=== PATIENT | male | born 1980 | race Two or more races ===

== ENCOUNTER 2025-02-10 08:03 | Emergency (ER) | payer MEDICAID, OTHER ==
[~2025-02-10] VITALS: Ht 165.1 cm; Wt 75.4 kg
[2025-02-10] MEDS ORDERED: FOLIC ACID 1 MG, MULTIPLE VITAMIN 10 ML, MAGNESIUM SULF SDV 50% 8 MEQ, THIAMINE INJ 100... INJ SCH (08:45)
--- NOTE | 2025-02-10 08:49 | ED.PDOC ---
History of Present Illness HPI Comments 44m presents to the ER w/ prior Hx of drinking 12 beers a day which may be associated to the c/c of Withdrawal. Pt reports that he had his last drink of alcohol 3 days ago and started to have tremors 2 days ago. Denies chills, fever, N/V/D, SOB, CP or no other associated symptom's, modifiers, recent injuries or sick contacts at this time. Chief Complaint: Withdrawal Time Seen by MD: 08:40 Reviewed Notes: Nurses Notes, Medications, Allergies Allergies: Coded Allergies: NO KNOWN ALLERGIES (Unverified , 02/10/25) Information Source: Patient Mode of Arrival: Ambulatory Severity: Moderate Timing: Days Duration: Since onset, Days Prehospital treatment: None Past Medical History PAST MEDICAL HISTORY: Denies Surgical History: Denies all surgeries Family History Family History: Reviewed,noncontributory to illness, Unknown Social History Smoker: Non-Smoker Alcohol: Heavy (12 beers a day) Drugs: Denies Drug Use Lives In: Home Constitutional: reports: others (ETOH Withdrawals); denies: chills, nhan phoresis, fatigue, fever, malaise, sweats, weakness EENTM: denies: blurred vision, double vision, ear bleeding, ear discharge, ear drainage, ear pain, ear ringing, eye pain, eye redness, hearing loss, mouth pain, mouth swelling, nasal discharge, nose bleeding, nose congestion, nose pain, photophobia, tearing, throat pain, throat swelling, voice changes, others Respiratory: denies: cough, hemoptysis, orthopnea, SOB at rest, shortness of breath, SOB with excertion, stridor, wheezing, others Cardiovascular: denies: chest pain, dizzy spells, diaphoresis, Dyspnea on exertion, edema, irregular heart beat, left arm pain, lightheadedness, palpitations, PND, syncope, others Gastrointestinal: denies: abdomen distended, abdominal pain, blood streaked bowels, constipated, diarrhea, dysphagia, difficulty swallowing, hematemesis, melena, nausea, poor appetite, poor fluid intake, rectal bleeding, rectal pain, vomiting, others Genitourinary: denies: burning, dysuria, flank pain, frequency, hematuria, incontinence, penile discharge, penile sore, pain, testicle pain, testicle swelling, urgency, others Neurological: denies: dizziness, fainting, headache, left sided numbness, left sided weakness, numbness, paresthesia, pre-existing deficit, right sided numbness, right sided weakness, seizure, speech problems, tingling, tremors, weakness, others Musculoskeletal: denies: back pain, gout, joint pain, joint swelling, muscle pain, muscle stiffness, neck pain, others Integumetry: denies: bruises, change in color, change in hair/nails, dryness, laceration, lesions, lumps, rash, wounds, others Allergic/Immunocompromised: denies: Difficulty Healing, Frequent Infections, Hives, Itching, others Hematologic/Lymphatic: denies: anemia, blood clots, easy bleeding, easy bruising, swollen glands, others Endocrine: denies: excessive hunger, excessive sweating, excessive thirst, excessive urination, flushing, intolerance to cold, intolerance to heat, unexplained weight gain, unexplained weight loss, others Psychiatric: denies: anxiety, bipolar disorder, depression, hopeless, panic disorder, schizophrenia, sleepless, suicidal, others All Other Systems: Reviewed and Negative Physical Exam General Appearance: Moderate Distress, Normal HEENT: Normal ENT Inspection, Pharynx Normal, TMs Normal Neck: Full Range of Motion, Non-Tender, Normal, Normal Inspection Respiratory: Chest Non-Tender, Lungs Clear, No Accessory Muscle Use, No Re spiratory Distress, Normal Breath Sounds Cardiovascular: No Edema, No JVD, No Murmur, No Gallop, Normal Peripheral Pulses, Regular Rate/Rhythm Breast Exam: Deferred Gastrointestinal: No Organomegaly, Non Tender, No Pulsatile Mass, Normal Bowel Sounds, Soft Genitalia: Deferred Pelvic: Deferred Rectal: Deferred Extremities: No calf tenderness, Normal capillary refill, Normal inspection, Normal range of motion, Non-tender, No pedal edema Musculoskeletal : Apperance: Normal Neurologic: Alert, compounding and finishing supervisor II-XII nml as Tested, No Motor Deficits, Normal Affect, Normal Mood, No Sensory Deficits Cerebellar Function: NOT DONE Reflexes: NOT DONE Skin: Dry, Normal Color, Warm Peripheral Pulses: 3+ Radial (R), 3+ Radial (L) Lymphatic: No Adenopathy Was a procedure done? Was a procedure done?: No Differential Dx Considerations may include: Alcohol withdrawal Electrolyte imbalance X-Ray, Labs, Meds, VS Vital Signs Date Time Temp Pulse Resp B/P (MAP) Pulse Ox O2 Delivery O2 Flow Rate FiO2 02/10/25 09:29 84 19 98 Room Air* 0 21 02/10/25 09:03 98.0 71 14 109/62 (78) 96 98.0 02/10/25 08:18 98.9 90 18 125/89 (101) 98 98.9 Lab Test 02/10/25 10:14 02/10/25 08:45 02/10/25 08:40 Range/Units Plasma/Serum Blood Alcohol < 3.0 <10 mg/dL Urine Color Yellow Yellow Urine Clarity Clear Clear Urine pH 5.0 5.0-9.0 Urine Specific [place] 1.023 1.001-1.035 Urine Protein Negative Negative Urine Ketones Negative Negative Urine Blood Negative Negative /uL Urine Nitrite Negative Negative Urine Bilirubin Negative Negative Urine Urobilinogen Normal Negative mg/dL Urine Leukocyte Esterase Negative Negative /uL Urine RBC <1 0 - 3 /hpf Urine Microscopic WBC 1 0-3 /HPF Urine Squamous Epithelial Cells None seen <5 /hpf Urine Bacteria None seen None Seen /hpf Urine Glucose Normal Normal mg/dL White Blood Count 4.7 4.4-10.8 10^3/uL Red Blood Count 5.31 4.5-5.90 10^6/uL Hemoglobin 14.7 13.5-17.5 g/dL Hematocrit 44.6 41.0-53.0 % Mean Corpuscular Volume 83.9 80.0-100.0 fL Mean Corpuscular Hemoglobin 27.7 L 28.0-32.0 pg Mean Corpuscular Hemoglobin Concent 33.0 32.0-36.0 g/dL Red Cell Distribution Width 19.2 H 11.8-14.3 % Platelet Count 159 140-450 10^3/uL Mean Platelet Volume 8.3 6.9-10.8 fL Neutrophils (%) (Auto) 60.7 37.0-80.0 % Lymphocytes (%) (Auto) 18.4 10.0-50.0 % Monocytes (%) (Auto) 15.4 H 0.0-12.0 % Eosinophils (%) (Auto) 2.0 0.0-7.0 % Basophils (%) (Auto) 3.5 H 0.0-2.0 % Neutrophils # (Auto) 2.9 1.6-8.6 10 ^3/uL Lymphocytes # (Auto) 0.9 0.4-5.4 10 ^3/uL Monocytes # (Auto) 0.7 0-1.3 10 ^3/uL Eosinophils # (Auto) 0.1 0-0.8 10 ^3/uL Basophils # (Auto) 0.2 0-0.2 10 ^3/uL Nucleated Red Blood Cells 0.1 % Sodium Level 142 136-145 mmol/L Potassium Level 4.0 3.5-5.1 mmol/L Chloride Level 109 H 98-107 mmol/L Carbon Dioxide Level 25 20-31 mmol/L Anion Gap 8 5-15 Blood Urea Nitrogen 11 9-23 mg/dL Creatinine 0.68 L 0.700-1.30 mg/dL Glomerular Filtration Rate Calc 118 >90 mL/min BUN/Creatinine Ratio 16.2 10.0-20.0 Serum Glucose 88 74-106 mg/dL Calcium Level 10.1 8.7-10.4 mg/dL Current Medications Medications (Trade) Dose Ordered Sig/Lawson Route Start Time Stop Time Status Last Admin Lorazepam (Ativan Inj) 2 mg ONCE ONCE IM 02/10/25 08:45 02/10/25 08:47 DC 02/10/25 09:05 Sodium Chloride 1,000 ml @ 1,000 mls/hr Q1H ONCE IV 02/10/25 08:45 02/10/25 09:44 DC 02/10/25 09:06 Chlordiazepoxide HCl (Librium Capsule) 50 mg ONCE ONCE PO 02/10/25 08:45 02/10/25 08:47 DC 02/10/25 09:05 Folic Acid 1 mg/ Multivitamins 10 ml/Magnesium Sulfate 8 meq/ Thiamine HCl 100 mg/Dextrose 1,013.2 ml @ 125.001 mls/hr DAILY@1800 INJ 02/10/25 09:15 02/10/25 10:07 Patient alert. Alcohol withdrawal. Vitals stable. Answering questions. He is shaking. Last drink was several days ago. Establish intravenous access. Was given fluids. Was given Ativan. Was given Librium. Counseled patient on effects of drinking for 15 minutes. Explained to the patient. Was told to join alcoholic anonymous. Was told to follow up with his primary care physician. Was told to come back if there is any problem. Time of 1ST Reevaluation: 09:10 Reevaluation 1ST: Unchanged Time of 2ND Reevaluation: 12:52 Reevaluation 2ND: Improved Patient Education/Counseling: Diagnosis, Treatment, Prognosis Family Education/Counseling: No Family Present Departure 1 Departure Time of Disposition: 10:16 Impression: Primary Impression: Alcohol withdrawal Qualified Codes: F10.930 - Alcohol use, unspecified with withdrawal, uncomplicated Additional Impression: Alcohol abuse Disposition: 01 HOME / SELF CARE / HOMELESS Condition: Good Discharged With: Self Critical Care Note Critical Care Time?: No Stability Stability form required: No Heart Score Heart Score: Heart Score Response (Comments) Value History N/A 0 EKG N/A 0 Age N/A 0 Risk Factors N/A 0 Troponin N/A 0 Total 0 I personally scribed for FARAZ AGUILA MD ([email or web address]) on 02/10/25 at 08:49. Electronically submitted by Lane Fernandez ([email or web address]). FARAZ AGUILA MD Feb 10, 2025 08:49
[2025-02-10 08:58] LABS: Basophils # (auto) 0.2 10 ^3/uL (0-0.2); Basophils % (auto) 3.5 % (0.0-2.0); Eosinophils # (auto) 0.1 10 ^3/uL (0-0.8); Hematocrit 44.6 % (41.0-53.0); Hemoglobin 14.7 g/dL (13.5-17.5); Lymphocytes # (auto) 0.9 10 ^3/uL (0.4-5.4); Lymphocytes % (auto) 18.4 % (10.0-50.0); Mean Corpuscular Hemoglobin 27.7 pg (28.0-32.0); Mean Corpuscular Volume 83.9 fL (80.0-100.0); Monocytes # (auto) 0.7 10 ^3/uL (0-1.3); Monocytes % (auto) 15.4 % (0.0-12.0); Neutrophils # (auto) 2.9 10 ^3/uL (1.6-8.6); Neutrophils % (auto) 60.7 % (37.0-80.0); Nucleated Red Blood Cells % 0.1 %; Platelet Count (auto) 159 10^3/uL (140-450); Red Blood Cells 5.31 10^6/uL (4.5-5.90); Red Cell Distribution Width 19.2 % (11.8-14.3); White Blood Cell 4.7 10^3/uL (4.4-10.8)
[2025-02-10] MEDS: chlordiazePOXIDE HCL 25 MG CAP PO ONE (09:05)
[2025-02-10] MEDS: LORazepam 2MG/ML-1ML VIAL IM ONE (09:05)
[2025-02-10 09:06] LABS: Sodium 142 mmol/L (136-145)
[2025-02-10] MEDS: SODIUM CHLORIDE 0.9% 1,000 ML IV ONE (09:06)
[2025-02-10 09:07] LABS: Anion Gap 8 (5-15); Calcium 10.1 mg/dL (8.7-10.4); Carbon Dioxide 25 mmol/L (20-31)
[2025-02-10 09:12] LABS: BUN/Creatinine Ratio 16.2 (10.0-20.0); Blood Urea Nitrogen 11 mg/dL (9-23); Chloride 109 mmol/L (98-107); Glucose 88 mg/dL (74-106)
[2025-02-10 09:29] VITALS: PULSE 84; RESP 19; O2SAT 98
[2025-02-10 09:29] LABS: Urine Bacteria None Seen /hpf (None Seen)
[2025-02-10 09:42] LABS: Urine Blood Negative /uL (Negative); Urine Clarity Clear (Clear); Urine Color Yellow (Yellow); Urine Protein, UAD Negative (Negative); Urine Specific Gravity 1.023 (1.001-1.035); Urine Squamous Epithelial Cell None Seen /hpf (<5); Urine Urobilinogen Normal (Negative); Urine WBC 1 /HPF (0-3)
[2025-02-10] MEDS: FOLIC ACID 1 MG, MULTIPLE VITAMIN 10 ML, MAGNESIUM SULF SDV 50% 8 MEQ, THIAMINE INJ 100... INJ SCH (10:07)
[2025-02-10 13:40] VITALS: BP 115/71; PULSE 89; RESP 15; TEMP 97.9; O2SAT 98
== END 2025-02-10 14:38 | disposition home or self-care (01) ==
LOC: ER 08:03
DX: F10.10 Alcohol abuse, uncomplicated (principal); Y90.0 Blood alcohol level of less than 20 mg/100 ml
CPT/HCPCS: 36415; 80048; 80320; 81001; 85025; 96361; 96365; 96366; 96372; 99284; J3411; J3475; J7030; J7070

== ENCOUNTER 2025-02-17 19:34 | Emergency (ER) | payer MEDICAID ==
[~2025-02-17] VITALS: Ht 167.6 cm; Wt 72.6 kg
[2025-02-17 21:51] VITALS: BP 138/82; PULSE 61; RESP 12; TEMP 98; O2SAT 95
--- NOTE | 2025-02-17 21:58 | ED.PDOC ---
History of Present Illness(SKN HPI Comments PER EMS, PATIENT C/O DOG BITE ON BOTH LOWER EXTREMITIES. PUNCTURE BITES NOTED. PATIENT STATES HE WAS WALKING AND A STRAY DOG BIT HIM AND RAN AWAY. Chief Complaint: Animal Bite Time Seen by MD: 19:49 History of Present Illness: Nurses Notes, Induction Heat Treater Notes, Medications, Allergies Allergies: Coded Allergies: NO KNOWN ALLERGIES (Unverified , 02/10/25) Home Meds Active Scripts Amoxicillin & Pot Clavulanate (AUGMENTIN TABLET) 875 Mg Tb, 875 MG PO BID for 7 Days, #14 TAB Prov:HALI MARK SAP BW CONSULTANT 02/17/25 Information Source: Patient Mode of Arrival: EMS Past Medical History PAST MEDICAL HISTORY: Denies Surgical History: Denies all surgeries Family History Family History: Reviewed,noncontributory to illness, Unknown Social History Smoker: Non-Smoker Alcohol: Heavy Drugs: Denies Drug Use Lives In: Home Constitutional: denies: chills, diaphoresis, fatigue, fever, malaise, sweats, weakness, others EENTM: denies: blurred vision, double vision, ear bleeding, ear discharge, ear drainage, ear pain, ear ringing, eye pain, eye redness, hearing loss, mouth pain, mouth swelling, nasal discharge, nose bleeding, nose congestion, nose pain, photophobia, tearing, throat pain, throat swelling, voice changes, others Respiratory: denies: cough, hemoptysis, orthopnea, SOB at rest, shortness of breath, SOB with excertion, stridor, wheezing, others Cardiovascular: denies: chest pain, dizzy spells, diaphoresis, Dyspnea on exertion, edema, irregular heart beat, left arm pain, lightheadedness, palpitations, PND, syncope, others Gastrointestinal: denies: abdomen distended, abdominal pain, blood streaked bowels, constipated, diarrhea, dysphagia, difficulty swallowing, hematemesis, melena, nausea, poor appetite, poor fluid intake, rectal bleeding, rectal pain, vomiting, others Genitourinary: denies: burning, dysuria, flank pain, frequency, hematuria, incontinence, penile discharge, penile sore, pain, testicle pain, testicle swelling, urgency, others Neurological: denies: dizziness, fainting, headache, left sided numbness, left sided weakness, numbness, paresthesia, pre-existing deficit, right sided numbness, right sided weakness, seizure, speech problems, tingling, tremors, weakness, others Musculoskeletal: denies: back pain, gout, joint pain, joint swelling, muscle pain, muscle stiffness, neck pain, others Integumetry: reports: wounds (LACERATION FULL-THICKNESS TO LEFT LOWER LEG. HEALED PUNCTURE WOUND TO RIGHT LOWER LEG BLEEDING CONTROLLED); denies: bruises, change in color, change in hair/nails, dryness, laceration, lesions, lumps, rash, others Allergic/Immunocompromised: denies: Difficulty Healing, Frequent Infections, Hives, Itching, others Hematologic/Lymphatic: denies: anemia, blood clots, easy bleeding, easy bruising, swollen glands, others Endocrine: denies: excessive hunger, excessive sweating, excessive thirst, excessive urination, flushing, intolerance to cold, intolerance to heat, unexplained weight gain, unexplained weight loss, others Psychiatric: denies: anxiety, bipolar disorder, depression, hopeless, panic disorder, schizophrenia, sleepless, suicidal, others Physical Exam General Appearance: No Apparent Distress, Normal HEENT: Pharynx Normal Neck: Full Range of Motion, Non-Tender Respiratory: Lungs Clear, No Respiratory Distress, Normal Breath Sounds Cardiovascular: No Murmur, Normal Peripheral Pulses, Regular Rate/Rhythm Breast Exam: Deferred Gastrointestinal: Non Tender, Soft Genitalia: Deferred Pelvic: Deferred Rectal: Deferred Extremities: Normal capillary refill, Normal inspection, Normal range of motion, Non-tender, No pedal edema Musculoskeletal : Apperance: Normal Neurologic: Alert, automotive alignment specialist II-XII nml as Tested, No Motor Deficits, Normal Affect, Normal Mood, No Sensory Deficits Cerebellar Function: Normal Reflexes: Normal Skin: Dry, Lacerations (1.5 CM LACERATION LAST LOWER ANTERIOR MEJIA NO NOTED OBVIOUS FOREIGN BODY. RIGHT LOWER ANTERIOR MEJIA NOTED PUNCTURE WOUND HEALED LOOKING IN HIS BLEEDING CONTROLLED), Normal Color, Warm Lymphatic: No Adenopathy Was a procedure done? Was a procedure done?: Yes Sedation Sedation?: No Informed consent obtained: Yes Laceration Repair : Location LOWER ANTERIOR MEJIA Length 1.5 CM Anesthetic: Nothing Laceration Repair Prep: Saline Laceration Repair Wound Comple: epidermis/dermis repair Laceration Repair: [place] (1) Informed consent obtained: Yes Risks, benefits, and alternati: Yes Notes PATIENT TOLERATED PROCEDURE WELL WITH MINIMAL BLOOD LOSS Differential Diagnosis (INTG) Differential Diagnosis: Contusion, Puncture Wound Differential Diagnosis: Cellulitis Differential Diagnosis: N/A Abscess: N/A Differential Diagnosis: N/A X-Ray, Labs, Meds, VS Vital Signs Date Time Temp Pulse Resp B/P (MAP) Pulse Ox O2 Delivery O2 Flow Rate FiO2 02/17/25 21:51 98.0 61 12 138/82 (100) 95 98.0 02/17/25 19:40 98.0 61 12 138/82 (100) 95 98.0 Current Medications Medications (Trade) Dose Ordered Sig/Lawson Route Start Time Stop Time Status Last Admin Acetaminophen/ Hydrocodone Bitart ([place] 5/325MG Tab) 1 tab ONCE ONCE PO 02/17/25 22:00 02/17/25 22:01 DC 02/17/25 22:40 Diphtheria/ Tetanus/Acell Pertussis (Boostrix T-Dap) 0.5 ml ONCE ONCE IM 02/17/25 22:00 02/17/25 22:01 DC 02/17/25 22:44 X-Ray, Labs, Meds, VS Comment SEE PROCEDURE NOTE. PATIENT GIVEN TDAP. FOLLOW UP WITH YOUR PCP, URGENT CARE OR BACK HERE FOR WOUND RE-EVALUATION IN 2 DAYS. SCRIPT PROPHYLACTIC ANTIBIOTICS AUGMENTIN TWICE DAILY X7 DAYS FOR DOG BITE. ADVISED TO TAKE MEDICATION PRESCRIBED SIDE EFFECTS DISCUSSED. STAPLE REMOVAL IN 7-10 DAYS. ER RETURN PRECAUTIONS FOR UNCONTROLLED BLEEDING, OR SIGNS AND SYMPTOMS OF INFECTION PATIENT INDICATES UNDERSTANDING AND AGREES WITH DISCHARGE PLAN OF CARE. Time of 1ST Reevaluation: 21:58 Reevaluation 1ST: Improved Patient Education/Counseling: Diagnosis, Treatment, Prognosis, Need For Follow Up Family Education/Counseling: No Family Present Departure 1 Departure Time of Disposition: 21:57 Impression: Primary Impression: Dog bite of multiple sites of lower extremity Qualified Codes: S81.859A - Open bite, unspecified lower leg, initial encounter; W54.0XXA - Bitten by dog, initial encounter Disposition: HOME / SELF CARE / HOMELESS Condition: Stable e-Prescriptions Amoxicillin & Pot Clavulanate (AUGMENTIN TABLET) 875 Mg Tb 875 MG PO BID for 7 Days, #14 TAB Prov: HALI MARK 02/17/25 Discharged With: Self Critical Care Note Critical Care Time?: No Stability Stability form required: No HALI MARK 26, 2025 21:58
[2025-02-17] MEDS ORDERED: AUG875T PO (22:17)
[2025-02-17] MEDS: HYDROcodone-ACET 5/325MG TAB PO ONE (22:40)
[2025-02-17] MEDS: TETANUS-DIPTH-ACEL PERTUSSIS 0.5ML SYR Tdap IM ONE (22:44)
== END 2025-02-17 22:53 | disposition home or self-care (01) ==
LOC: ER 19:34 → EDBD 19:34 → ER 22:53
DX: S81.852A Open bite, left lower leg, initial encounter (principal); S81.851A Open bite, right lower leg, initial encounter; W54.0XXA Bitten by dog, initial encounter; Y93.89 Activity, other specified; Y92.89 Other specified places as the place of occurrence of the external cause; Y99.8 Other external cause status
CPT/HCPCS: 12001; 90471; 90715

== ENCOUNTER 2025-02-18 21:23 | Inpatient (IN) | payer MEDICAID ==
[~2025-02-18] VITALS: Ht 167.6 cm; Wt 77.6 kg
[~2025-02-18 21:23] MED LIST: AUG875T PO
[2025-02-19] VITALS (8 sets, daily range): BP systolic 118–128; BP diastolic 69–81; PULSE 75–95; RESP 15–18; TEMP 98.2–98.4; O2SAT 91–97
--- NOTE | 2025-02-19 00:03 | ED.PDOC ---
History of Present Illness(SKN HPI Comments 44-YEAR-OLD HOMELESS MALE PT BROUGHT IN BY EMS FOR CC OF BLE PAIN S/P DOG BITES 2 DAYS AGO. LLE APPEAR EDEMATOUS. PATIENT REPORTS INCREASING PAIN, REDNESS, AND SWELLING. DENIES ANY SIGNIFICANT PAST MEDICAL HISTORY. DENIES NUMBNESS, WEAKNESS, FEVER, CHILLS, NAUSEA, OR VOMITING. Chief Complaint: Lower Extremity Time Seen by MD: 21:38 History of Present Illness: Nurses Notes, Medications, Allergies Allergies: Coded Allergies: NO KNOWN ALLERGIES (Unverified , 02/10/25) Home Meds Active Scripts Amoxicillin & Pot Clavulanate (AUGMENTIN TABLET) 875 Mg Tb, 875 MG PO BID for 7 Days, #14 TAB Prov:HALI MARK MID LEVEL PROVIDER 02/17/25 Information Source: Patient Mode of Arrival: Ambulatory Past Medical History PAST MEDICAL HISTORY: Denies Surgical History: Denies all surgeries Family History Family History: Reviewed,noncontributory to illness, Unknown Social History Smoker: Non-Smoker Alcohol: Heavy Drugs: Denies Drug Use Lives In: Home Constitutional: denies: chills, diaphoresis, fatigue, fever, malaise, sweats, weakness, others EENTM: denies: blurred vision, double vision, ear bleeding, ear discharge, ear drainage, ear pain, ear ringing, eye pain, eye redness, hearing loss, mouth pain, mouth swelling, nasal discharge, nose bleeding, nose congestion, nose pain, photophobia, tearing, throat pain, throat swelling, voice changes, others Respiratory: denies: cough, hemoptysis, orthopnea, SOB at rest, shortness of breath, SOB with excertion, stridor, wheezing, others Cardiovascular: denies: chest pain, dizzy spells, diaphoresis, Dyspnea on exertion, edema, irregular heart beat, left arm pain, lightheadedness, palpitations, PND, syncope, others Gastrointestinal: denies: abdomen distended, abdominal pain, blood streaked bowels, constipated, diarrhea, dysphagia, difficulty swallowing, hematemesis, melena, nausea, poor appetite, poor fluid intake, rectal bleeding, rectal pain, vomiting, others Genitourinary: denies: burning, dysuria, flank pain, frequency, hematuria, incontinence, penile discharge, penile sore, pain, testicle pain, testicle swelling, urgency, others Neurological: denies: dizziness, fainting, headache, left sided numbness, left sided weakness, numbness, paresthesia, pre-existing deficit, right sided numbne ss, right sided weakness, seizure, speech problems, tingling, tremors, weakness, others Musculoskeletal: denies: back pain, gout, joint pain, joint swelling, muscle pain, muscle stiffness, neck pain, others Integumetry: reports: wounds (LEFT LOWER LEG ANTERIOR MEJIA); denies: bruises, change in color, change in hair/nails, dryness, laceration, lesions, lumps, rash, others Allergic/Immunocompromised: denies: Difficulty Healing, Frequent Infections, Hives, Itching, others Hematologic/Lymphatic: denies: anemia, blood clots, easy bleeding, easy bruising, swollen glands, others Endocrine: denies: excessive hunger, excessive sweating, excessive thirst, excessive urination, flushing, intolerance to cold, intolerance to heat, unexplained weight gain, unexplained weight loss, others Psychiatric: denies: anxiety, bipolar disorder, depression, hopeless, panic disorder, schizophrenia, sleepless, suicidal, others Physical Exam General Appearance: No Apparent Distress, Normal HEENT: Pharynx Normal Neck: Full Range of Motion, Non-Tender Respiratory: Lungs Clear, No Respiratory Distress, Normal Breath Sounds Cardiovascular: No Edema, No JVD, No Murmur, No Gallop, Normal Peripheral Pulses, Regular Rate/Rhythm Breast Exam: Deferred Gastrointestinal: No Organomegaly, Non Tender, No Pulsatile Mass, Normal Bowel Sounds, Soft Genitalia: Deferred Pelvic: Deferred Rectal: Deferred Extremities: No calf tenderness, Normal capillary refill, Normal inspection, Normal range of motion, Non-tender, No pedal edema Musculoskeletal : Apperance: Normal Neurologic: Alert, allied health professional II-XII nml as Tested, No Motor Deficits, Normal Affect, Normal Mood, No Sensory Deficits Cerebellar Function: Normal Reflexes: Normal Skin: Dry, Lacerations (0.5 CM LACERATION WITH STAPLE INTACT NOTED MODERATE ERYTHEMA WITH EDEMA. SEROSANGUINEOUS DRAINAGE STRENGTH SENSORY MOTION INTACT POSITIVE PEDAL PULSE), Normal Color, Warm Lymphatic: No Adenopathy Was a procedure done? Was a procedure done?: No Differential Diagnosis (INTG) Differential Diagnosis: Cellulitis Differential Diagnosis: Abscess X-Ray, Labs, Meds, VS Vital Signs Date Time Temp Pulse Resp B/P (MAP) Pulse Ox O2 Delivery O2 Flow Rate FiO2 02/19/25 05:02 98.6 90 18 106/73 (84) 97 98.6 02/19/25 05:02 90 18 97 Room Air* 0 21 02/18/25 21:23 98.7 73 18 126/73 (90) 97 98.7 Lab Test 02/19/25 05:26 02/19/25 00:08 Range/Units White Blood Count 4.1 #L 5.8 4.4-10.8 10^3/uL Red Blood Count 5.10 5.21 4.5-5.90 10^6/uL Hemoglobin 14.2 14.5 13.5-17.5 g/dL Hematocrit 42.4 43.7 41.0-53.0 % Mean Corpuscular Volume 83.1 84.0 80.0-100.0 fL Mean Corpuscular Hemoglobin 27.9 L 27.8 L 28.0-32.0 pg Mean Corpuscular Hemoglobin Concent 33.6 33.1 32.0-36.0 g/dL Red Cell Distribution Width 19.1 H 19.4 H 11.8-14.3 % Platelet Count 146 146 140-450 10^3/uL Mean Platelet Volume 7.8 7.6 6.9-10.8 fL Neutrophils (%) (Auto) 53.2 61.7 37.0-80.0 % Lymphocytes (%) (Auto) 31.5 27.7 10.0-50.0 % Monocytes (%) (Auto) 11.5 8.9 0.0-12.0 % Eosinophils (%) (Auto) 2.7 1.0 0.0-7.0 % Basophils (%) (Auto) 1.1 0.7 0.0-2.0 % Neutrophils # (Auto) 2.2 3.6 1.6-8.6 10 ^3/uL Lymphocytes # (Auto) 1.3 1.6 0.4-5.4 10 ^3/uL Monocytes # (Auto) 0.5 0.5 0-1.3 10 ^3/uL Eosinophils # (Auto) 0.1 0.1 0-0.8 10 ^3/uL Basophils # (Auto) 0 0 0-0.2 10 ^3/uL Nucleated Red Blood Cells 0.0 0.3 % Sodium Level 140 139 136-145 mmol/L Potassium Level 3.1 L 3.6 3.5-5.1 mmol/L Chloride Level 104 105 98-107 mmol/L Carbon Dioxide Level 27 23 20-31 mmol/L Anion Gap 9 11 5-15 Blood Urea Nitrogen < 5 L < 5 L 9-23 mg/dL Creatinine 0.59 L 0.52 L 0.700-1.30 mg/dL Glomerular Filtration Rate Calc 123 128 >90 mL/min BUN/Creatinine Ratio 8.5 L 9.6 L 10.0-20.0 Serum Glucose 95 83 74-106 mg/dL Calcium Level 9.2 9.2 8.7-10.4 mg/dL Total Bilirubin 1.4 H 1.3 H 0.2-1.0 mg/dL Aspartate Amino Transferase (AST) 40 46 H 13-40 U/L Alanine Aminotransferase (ALT) 29 33 7-40 U/L Alkaline Phosphatase 95 97 46-116 U/L Total Protein 7.3 7.8 5.7-8.2 g/dL Albumin 4.2 4.5 3.2-4.8 g/dL X-Ray, Labs, Meds, VS Comment CLINDAMYCIN IV STARTED. PATIENT PLACED FOR HOSPITALIST FOR DOG BITE INFECTION. CBC CMP ORDERED. Time of 1ST Reevaluation: 01:47 Reevaluation 1ST: Unchanged Patient Education/Counseling: Diagnosis, Treatment, Prognosis, Need For Follow Up Family Education/Counseling: No Family Present Departure 1 Departure Time of Disposition: 00:02 Impression: Primary Impression: Dog bite of left lower leg with infection Qualified Codes: S81.852A - Open bite, left lower leg, initial encounter; L08.9 - Local infection of the skin and subcutaneous tissue, unspecified; W54.0XXA - Bitten by dog, initial encounter Disposition: 09 ADMITTED INPATIENT Condition: Stable Discharged With: Self Critical Care Note Critical Care Time?: No Stability Stability form required: HALI Millan Feb 19, 2025 00:03
[2025-02-19 00:25] LABS: Basophils # (auto) 0 10 ^3/uL (0-0.2); Basophils % (auto) 0.7 % (0.0-2.0); Eosinophils # (auto) 0.1 10 ^3/uL (0-0.8); Hematocrit 43.7 % (41.0-53.0); Hemoglobin 14.5 g/dL (13.5-17.5); Lymphocytes # (auto) 1.6 10 ^3/uL (0.4-5.4); Lymphocytes % (auto) 27.7 % (10.0-50.0); Mean Corpuscular Hemoglobin 27.8 pg (28.0-32.0); Mean Corpuscular Hgb Conc. 33.1 g/dL (32.0-36.0); Monocytes # (auto) 0.5 10 ^3/uL (0-1.3); Monocytes % (auto) 8.9 % (0.0-12.0); Neutrophils # (auto) 3.6 10 ^3/uL (1.6-8.6); Neutrophils % (auto) 61.7 % (37.0-80.0); Nucleated Red Blood Cells % 0.3 %; Platelet Count (auto) 146 10^3/uL (140-450); Red Blood Cells 5.21 10^6/uL (4.5-5.90); Red Cell Distribution Width 19.4 % (11.8-14.3); White Blood Cell 5.8 10^3/uL (4.4-10.8)
[2025-02-19 00:42] LABS: Alanine Aminotransferase 33 U/L (7-40); Albumin 4.5 g/dL (3.2-4.8); Alkaline Phosphatase 97 U/L (46-116); Anion Gap 11 (5-15); Calcium 9.2 mg/dL (8.7-10.4); Carbon Dioxide 23 mmol/L (20-31); Chloride 105 mmol/L (98-107); Glucose 83 mg/dL (74-106); Potassium 3.6 mmol/L (3.5-5.1); Sodium 139 mmol/L (136-145); Total Protein 7.8 g/dL (5.7-8.2)
[2025-02-19 00:44] LABS: Aspartate Aminotransferase 46 U/L (13-40); BUN/Creatinine Ratio 9.6 (10.0-20.0); Bilirubin, Total 1.3 mg/dL (0.2-1.0); Blood Urea Nitrogen < 5 mg/dL (9-23)
[2025-02-19] MEDS: AMPICILLIN & SULBACTAM SODIUM 3 GM in SODIUM CHL 0.9% 100 ML IV ONE (00:57)
[2025-02-19] MEDS: CLINDAMYCIN 600MG IV 50 ML IV ONE (04:49)
[2025-02-19] MEDS ORDERED: DOCUSATE SOD 100 MG CAP PO PRN (05:15)
[2025-02-19] MEDS ORDERED: ONDANSETRON HCL 4 MG/2 ML VIAL IV PRN (05:15)
[2025-02-19 06:03] LABS: Basophils # (auto) 0 10 ^3/uL (0-0.2); Basophils % (auto) 1.1 % (0.0-2.0); Eosinophils # (auto) 0.1 10 ^3/uL (0-0.8); Eosinophils % (auto) 2.7 % (0.0-7.0); Hematocrit 42.4 % (41.0-53.0); Hemoglobin 14.2 g/dL (13.5-17.5); Lymphocytes # (auto) 1.3 10 ^3/uL (0.4-5.4); Lymphocytes % (auto) 31.5 % (10.0-50.0); Mean Corpuscular Hemoglobin 27.9 pg (28.0-32.0); Mean Corpuscular Hgb Conc. 33.6 g/dL (32.0-36.0); Mean Corpuscular Volume 83.1 fL (80.0-100.0); Monocytes # (auto) 0.5 10 ^3/uL (0-1.3); Monocytes % (auto) 11.5 % (0.0-12.0); Neutrophils # (auto) 2.2 10 ^3/uL (1.6-8.6); Neutrophils % (auto) 53.2 % (37.0-80.0); Platelet Count (auto) 146 10^3/uL (140-450); Red Cell Distribution Width 19.1 % (11.8-14.3); White Blood Cell 4.1 10^3/uL (4.4-10.8)
[2025-02-19 06:17] LABS: Alanine Aminotransferase 29 U/L (7-40); Albumin 4.2 g/dL (3.2-4.8); Alkaline Phosphatase 95 U/L (46-116); Anion Gap 9 (5-15); Calcium 9.2 mg/dL (8.7-10.4); Carbon Dioxide 27 mmol/L (20-31); Chloride 104 mmol/L (98-107); Glucose 95 mg/dL (74-106); Sodium 140 mmol/L (136-145); Total Protein 7.3 g/dL (5.7-8.2)
[2025-02-19 06:19] LABS: Aspartate Aminotransferase 40 U/L (13-40); BUN/Creatinine Ratio 8.5 (10.0-20.0); Bilirubin, Total 1.4 mg/dL (0.2-1.0); Blood Urea Nitrogen < 5 mg/dL (9-23); Potassium 3.1 mmol/L (3.5-5.1)
--- NOTE | 2025-02-19 06:23 | DVHHP2 ---
History of Present Illness Reason for Visit: Dog bite of left lower leg with infection History of Present Illness The patient is a 44-year-old male homeless who denies past medical history presented to [facility] ED for evaluation of left lower extremity dog bite 2 days ago. Patient reports increasing pain, redness, swelling, getting worse today that prompted this visit. Patient was seen and evaluated in the ED, laboratory data shows WBC 5.8, platelets 146, sodium 139, potassium 3.6, BUN < 5, creatinine 0.52, GFR 128, glucose 83, total bilirubin 1.3, AST 46, ALT 33. Patient was started on IV antibiotic regimen Unasyn, please see medication orders section in the computer. On my assessment, patient denies chest pain, no headache, no dizziness, no diaphoresis, no shortness of breath, no nausea, no vomiting, no fever, no chills. Patient was admitted for further evaluation and medical management. Past Medical History Denies past medical history Past Surgical History Denies all surgeries Family History Reviewed, noncontributory to the management of this case. Past Social History The patient lives at home, drinks alcohol heavily, denies smoking or illicit drugs abuse. Review of Systems Constitutional: No: Fever, Chills, Sweats, Weakness, Malaise, Other Eyes: No: Pain, Vision change, Conjunctivae inflammation, Eyelid inflammation, Other, Redness ENT: No: Ear pain, Ear discharge, Nose pain, Nose discharge, Nose congestion, Mouth pain, Mouth swelling, Throat pain, Throat swelling, Other Respiratory: No: Cough, Dry, Shortness of breath, SOB with excertion, Wheezing, Hemoptysis, Pleuritic Pain, Sputum, Wheezing, Other Cardiovascular: No: Chest Pain, Palpitations, Orthopnea, Paroxysmal Noc. Dyspnea, Edema, Lt Headedness, Other Gastrointestinal: No: Nausea, Vomiting, Abdominal Pain, Diarrhea, Constipation, Melena, Hematochezia, Other Genitourinary: No Dysuria, No Frequency, No Incontinence, No Hematuria, No Retention, No Other Musculoskeletal: foot pain; No: other, neck pain, shoulder pain, arm pain, back pain, hand pain, leg pain Skin: Other (Left foot dog bite); No: Rash, Lesions, Jaundice, Bruising Neurological: No: Weakness, Numbness, Incoordination, Change in speech, Confusion, Seizures, Other Allergies: Coded Allergies: NO KNOWN ALLERGIES (Unverified , 02/10/25) Medications Current Medications Medications Dose Ordered Sig/Lawson Route Start Time Stop Time Status Last Admin Dose Admin Ampicillin Sodium/ Sulbactam Sodium 3 gm/Sodium Chloride 100 ml @ 100 mls/hr Q12H IV 02/19/25 05:15 Sodium Chloride 1,000 ml @ 60 mls/hr [id number] IV 02/19/25 05:15 Acetaminophen/ Hydrocodone Bitart 1 tab Q4HP PRN PO 02/19/25 05:15 Ondansetron HCl 4 mg Q4HP PRN IV 02/19/25 05:15 Docusate Sodium 100 mg BIDPRN PRN PO 02/19/25 05:15 Acetaminophen 650 mg Q6HP PRN PO 02/19/25 05:15 Nitroglycerin 0.4 mg Q5MINP PRN SL 02/19/25 06:30 UNV Morphine Sulfate 2 mg Q30M PRN IV 02/19/25 06:30 UNV Exam Vital Signs Vital Signs Date Time Temp Pulse Resp B/P (MAP) Pulse Ox O2 Delivery O2 Flow Rate FiO2 02/19/25 05:02 98.6 90 18 106/73 (84) 97 98.6 02/19/25 05:02 Room Air* 0 21 General Appearance: Alert, Oriented X3, Cooperative, No acute distress HEENT: Atraumatic, PERRLA, EOMI, Mucous membr. moist/pink Respiratory: Clear to auscultation, Normal air movement Cardiovascular: Regular rate, Normal S1, Normal S2, No murmurs Abdominal: Normal bowel sounds, Soft, No tenderness, No hepatospenomegaly, No masses Extremities: No clubbing, No cyanosis, No edema, Normal pulses, Other (Foot tenderness/swelling) Skin: No rashes, No breakdown, No significant lesion Neuro: Normal gait, Normal speech, Strength at 5/5 X4 ext, Normal tone, Sensation intact, Cranial nerves 3-12 NL, Reflexes 2+ Psych/Mental Status: Mental status NL, Mood NL Labs/Xrays Labs Test 02/19/25 05:26 Range/Units White Blood Count 4.1 #L 4.4-10.8 10^3/uL Red Blood Count 5.10 4.5-5.90 10^6/uL Hemoglobin 14.2 13.5-17.5 g/dL Hematocrit 42.4 41.0-53.0 % Mean Corpuscular Volume 83.1 80.0-100.0 fL Mean Corpuscular Hemoglobin 27.9 L 28.0-32.0 pg Mean Corpuscular Hemoglobin Concent 33.6 32.0-36.0 g/dL Red Cell Distribution Width 19.1 H 11.8-14.3 % Platelet Count 146 140-450 10^3/uL Mean Platelet Volume 7.8 6.9-10.8 fL Neutrophils (%) (Auto) 53.2 37.0-80.0 % Lymphocytes (%) (Auto) 31.5 10.0-50.0 % Monocytes (%) (Auto) 11.5 0.0-12.0 % Eosinophils (%) (Auto) 2.7 0.0-7.0 % Basophils (%) (Auto) 1.1 0.0-2.0 % Neutrophils # (Auto) 2.2 1.6-8.6 10 ^3/uL Lymphocytes # (Auto) 1.3 0.4-5.4 10 ^3/uL Monocytes # (Auto) 0.5 0-1.3 10 ^3/uL Eosinophils # (Auto) 0.1 0-0.8 10 ^3/uL Basophils # (Auto) 0 0-0.2 10 ^3/uL Nucleated Red Blood Cells 0.0 % Sodium Level 140 136-145 mmol/L Potassium Level 3.1 L 3.5-5.1 mmol/L Chloride Level 104 98-107 mmol/L Carbon Dioxide Level 27 20-31 mmol/L Anion Gap 9 5-15 Blood Urea Nitrogen < 5 L 9-23 mg/dL Creatinine 0.59 L 0.700-1.30 mg/dL Glomerular Filtration Rate Calc 123 >90 mL/min BUN/Creatinine Ratio 8.5 L 10.0-20.0 Serum Glucose 95 74-106 mg/dL Calcium Level 9.2 8.7-10.4 mg/dL Total Bilirubin 1.4 H 0.2-1.0 mg/dL Aspartate Amino Transferase (AST) 40 13-40 U/L Alanine Aminotransferase (ALT) 29 7-40 U/L Alkaline Phosphatase 95 46-116 U/L Total Protein 7.3 5.7-8.2 g/dL Albumin 4.2 3.2-4.8 g/dL Assessment/Plan Assessment/Plan Dog bite of left lower leg with infection Open bite, left lower leg, initial encounter Local infection of the skin and subcutaneous tissue, unspecified Bitten by dog, initial encounter Plan 1. Admit to med surge unit 2. Breathing treatment 3. Pain control management 4. IV antibiotic management 5. Management of fluids and electrolytes 6. Consultation for hospitalist 7. Diagnostic test chest x-ray 8. DVT prophylaxis-on SCDs 9. Repeat labs CBC, CMP in a.m. 10. Continue with current medical management 11. Treatment plan discussed with patient and RN. Patient verbalized understanding. Plan discussed with: Patient, Other (RN) My Orders Orders - MARIA DEL CARMEN GONZALEZ DNP Procedure Category Date Status Time Ampicillin & PHA 02/19/25 In Process Sulbactam Sodium 05:15 Allergies RJ 02/19/25 In Process 05:06 Code Status CODE 02/19/25 Transmitted 05:06 Sodium Chloride 0.9% PHA 02/19/25 In Process 05:15 Oxygen Per Hour RT 02/19/25 Transmitted 05:06 Hydrocodone-Acet PHA 02/19/25 In Process 5/325mg Tab ([place] 05:15 Ondansetron Hcl PHA 02/19/25 In Process (Zofran) 05:15 Docusate Sodium PHA 02/19/25 In Process Capsule (Colace 05:15 Complete Blood Count LAB 02/20/25 Verified 04:00 Comprehensive LAB 02/20/25 Verified Metabolic Panel 04:00 Cardiac DIET 02/19/25 Transmitted Diet-2gna,Lofat,Lochol Breakfast Condition: Serious RJ 02/19/25 In Process 05:06 Acetaminophen Tablet PHA 02/19/25 In Process (Tylenol Tablet) 05:15 Bedrest With Bathroom RJ 02/19/25 In Process Privileg 05:06 Sequential RJ 02/19/25 In Process Compression Device Admit ADMIT 02/19/25 Transmitted 06:21 Nitroglycerin PHA 02/19/25 Transmitted Sublingual (Ntrostat 06:30 Morphine Sulfate PHA 02/19/25 Transmitted Injection 06:30 Notify Of Changes RJ 02/19/25 Transmitted From Base 06:21 Emergency Dysrhythmia RJ 02/19/25 Transmitted Protocol 06:21 Oxygen By Nasal RT 02/19/25 Transmitted Cannula 06:21 Problem List: (1) Dog bite of left lower leg with infection (2) Open bite, left lower leg, initial encounter (3) Local infection of the skin and subcutaneous tissue, unspecified (4) Bitten by dog, initial encounter Date of Service: Feb 19, 2025 Billing Provider: MARIA DEL CARMEN GONZALEZ DNP Common Visit Codes: [id number] INP/OBS CARE (HIGH) MARIA DEL CARMEN GONZALEZ DNP Feb 19, 2025 06:23
[2025-02-19] MEDS ORDERED: NITROGLYCERIN 0.4 MG SL TAB SL PRN (06:30)
[2025-02-19] MEDS ORDERED: MORPHINE SULFATE INJ 2 MG/ml SYRG IV PRN (06:30)
[2025-02-19] MEDS: SODIUM CHLORIDE 0.9% 1,000 ML IV SCH (06:57)
[2025-02-19 07:06] LABS: Urine Bacteria None Seen /hpf (None Seen)
[2025-02-19 07:32] LABS: Urine Blood Negative /uL (Negative); Urine Clarity Clear (Clear); Urine Color Light-Orange (Yellow); Urine Hyaline Cast FEW /lpf (0 - 2); Urine Mucus FEW (None Seen); Urine Protein, UAD 1+ (Negative); Urine Squamous Epithelial Cell FEW /hpf (<5); Urine Urobilinogen 3 mg/dL (Negative); Urine WBC 4 /HPF (0-3); Urine pH 5.5 (5.0-9.0)
[2025-02-19] MEDS: AMPICILLIN & SULBACTAM SODIUM 3 GM in SODIUM CHL 0.9% 100 ML IV SCH (08:36)
[2025-02-19] MEDS: ACETAMINOPHEN 325 MG TAB PO PRN (15:59)
[2025-02-19] MEDS: POTASSIUM EFFERVESENT TAB 25 MEQ PO ONE (17:33)
[2025-02-20 01:00] VITALS: BP 118/71; PULSE 78; RESP 18; TEMP 98.2; O2SAT 97
[2025-02-20 05:00] VITALS: BP 130/81; PULSE 74; RESP 18; TEMP 97.9; O2SAT 95
[2025-02-20 07:28] LABS: Basophils # (auto) 0 10 ^3/uL (0-0.2); Eosinophils # (auto) 0.1 10 ^3/uL (0-0.8); Hemoglobin 14.6 g/dL (13.5-17.5); Nucleated Red Blood Cells % 0.1 %; Platelet Count (auto) 107 10^3/uL (140-450)
[2025-02-20 07:30] LABS: Basophils % (auto) 0.6 % (0.0-2.0); Eosinophils % (auto) 2.3 % (0.0-7.0); Hematocrit 44.8 % (41.0-53.0); Lymphocytes # (auto) 0.8 10 ^3/uL (0.4-5.4); Lymphocytes % (auto) 18.6 % (10.0-50.0); Mean Corpuscular Hemoglobin 27.3 pg (28.0-32.0); Mean Corpuscular Hgb Conc. 32.7 g/dL (32.0-36.0); Mean Corpuscular Volume 83.7 fL (80.0-100.0); Monocytes # (auto) 0.5 10 ^3/uL (0-1.3); Monocytes % (auto) 11.8 % (0.0-12.0); Neutrophils # (auto) 2.8 10 ^3/uL (1.6-8.6); Neutrophils % (auto) 66.7 % (37.0-80.0); Red Blood Cells 5.35 10^6/uL (4.5-5.90); Red Cell Distribution Width 19.5 % (11.8-14.3); White Blood Cell 4.1 10^3/uL (4.4-10.8)
[2025-02-20 07:54] LABS: Alanine Aminotransferase 28 U/L (7-40); Alkaline Phosphatase 99 U/L (46-116); Anion Gap 10 (5-15); Aspartate Aminotransferase 32 U/L (13-40); Calcium 9.2 mg/dL (8.7-10.4); Carbon Dioxide 23 mmol/L (20-31); Chloride 104 mmol/L (98-107); Glucose 99 mg/dL (74-106); Magnesium 1.7 mg/dL (1.6-2.6); Potassium 3.8 mmol/L (3.5-5.1); Sodium 137 mmol/L (136-145); Total Protein 7.1 g/dL (5.7-8.2)
[2025-02-20 07:55] LABS: BUN/Creatinine Ratio 8.6 (10.0-20.0); Bilirubin, Total 2.6 mg/dL (0.2-1.0); Blood Urea Nitrogen < 5 mg/dL (9-23)
[2025-02-20 08:57] VITALS: BP 119/79; PULSE 81; RESP 16; TEMP 98.2; O2SAT 95
[2025-02-20 12:34] VITALS: BP 126/79; PULSE 80; RESP 16; TEMP 98.2; O2SAT 93
[2025-02-20] MEDS: SODIUM CHLORIDE 0.9% 1,000 ML IV SCH (16:00)
[2025-02-20] MEDS: AMPICILLIN & SULBACTAM SODIUM 3 GM in SODIUM CHL 0.9% 100 ML IV SCH (16:32)
[2025-02-20 16:38] VITALS: BP 127/82; PULSE 81; RESP 16; TEMP 98.6; O2SAT 96
--- NOTE | 2025-02-20 17:33 | DVHPN2 ---
Subjective Feels better Reviewed: Care Plan, H&P, Labs, Medications, Previous Orders, Radiology Changes from previous H/P or p: No Changes Objective Vitals Vital Signs Date Time Temp Pulse Resp B/P (MAP) Pulse Ox O2 Delivery O2 Flow Rate FiO2 02/20/25 16:38 98.6 81 16 127/82 (97) 96 98.6 02/20/25 07:45 Room Air* 0 21 Intake/Output Intake and Output 02/20/25 07:00 Intake Total 3380 ml Balance 3380 ml Intake Oral 2200 ml IV Total 1180 ml # Voids 3 General Appearance: Alert, Oriented X3, Cooperative, No acute distress HEENT: Atraumatic Lungs: Clear to auscultation Cardiovascular: Regular rate Extremities: Other (Bilateral lower extremities healing dog bite wounds. No tension edema. No redness or redness of the skin. Minimal wounds surrounding erythema) Medications Current Medications Medications Dose Ordered Sig/Lawson Route Start Time Stop Time Status Last Admin Dose Admin Acetaminophen/ Hydrocodone Bitart 1 tab Q4HP PRN PO 02/19/25 05:15 Ondansetron HCl 4 mg Q4HP PRN IV 02/19/25 05:15 Docusate Sodium 100 mg BIDPRN PRN PO 02/19/25 05:15 Acetaminophen 650 mg Q6HP PRN PO 02/19/25 05:15 02/20/25 16:31 650 MG Nitroglycerin 0.4 mg Q5MINP PRN SL 02/19/25 06:30 Morphine Sulfate 2 mg Q30M PRN IV 02/19/25 06:30 Ampicillin Sodium/ Sulbactam Sodium 3 gm/Sodium Chloride 100 ml @ 100 mls/hr Q6H IV 02/20/25 15:00 02/20/25 16:32 100 MLS/HR Sodium Chloride 1,000 ml @ 75 mls/hr [id number] IV 02/20/25 16:00 Laboratory Results Laboratory Tests 02/20/25 07:00 Chemistry Test 02/20/25 07:00 Albumin 4.0 g/dL (3.2-4.8) Calcium Level 9.2 mg/dL (8.7-10.4) Magnesium Level 1.7 mg/dL (1.6-2.6) Total Protein 7.1 g/dL (5.7-8.2) LFT Test 02/20/25 07:00 Alanine Aminotransferase (ALT) 28 U/L (7-40) Alkaline Phosphatase 99 U/L (46-116) Aspartate Amino Transferase (AST) 32 U/L (13-40) Total Bilirubin 2.6 mg/dL (0.2-1.0) H Urinalysis Test 02/19/25 06:30 Urine Color Light-orange (Yellow) Urine Clarity Clear (Clear) Urine pH 5.5 (5.0-9.0) Urine Specific [place] 1.030 (1.001-1.035) Urine Protein 1+ (Negative) H Urine Ketones Trace (Negative) Urine Blood Negative /uL (Negative) Urine Nitrite Negative (Negative) Urine Bilirubin Negative (Negative) Urine Urobilinogen 3 mg/dL (Negative) H Urine Leukocyte Esterase Negative /uL (Negative) Urine RBC 2 /hpf (0 - 3) Urine Microscopic WBC 4 /HPF (0-3) H Urine Squamous Epithelial Cells Few /hpf (<5) Urine Bacteria None seen /hpf (None Seen) Urine Hyaline Casts Few /lpf (0 - 2) Urine Mucus Few (None Seen) Urine Glucose Trace mg/dL (Normal) Assessment/Plan Assessment/Plan Bilateral lower extremities wounds from dog bites Leukopenia Thrombocytopenia Homelessness 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 Continue IV antibiotics. Further plan per orders Plan discussed with: Patient, Other (Nursing) My Orders Orders - TREVON NORMAN MD Procedure Category Date Status Time Apply/Change Dressing RJ 02/20/25 In Process 11:36 L Tib Fib Xray XY 02/20/25 Taken 15:58 R Tib Fib Xray XY 02/20/25 Taken 15:58 Sodium Chloride 0.9% PHA 02/20/25 In Process 16:00 Date of Service: Feb 20, 2025 Billing Provider: TREVON NORMAN MD Common Visit Codes: [id number] INP/OBS CARE(HIGH) TREVON NORMAN MD Feb 20, 2025 17:33
--- NOTE | 2025-02-20 17:45 | DVH ---
CLINICAL INDICATION: R/O foreign objects TECHNIQUE: 2 radiographic views of the right tibia and fibula were obtained. Comparison: None FINDINGS/IMPRESSION: There is no evidence of acute fracture or dislocation. The visualized joint space is well maintained. The alignment is anatomical. There is no radiopaque foreign body. HS:Y
--- NOTE | 2025-02-20 17:46 | DVH ---
CLINICAL INDICATION: R/O foreign objects TECHNIQUE: 2 radiographic views of the left tibia and fibula were obtained. Comparison: None FINDINGS/IMPRESSION: There is no evidence of acute fracture or dislocation. The visualized joint space is well maintained. The alignment is anatomical. There is no radiopaque foreign body. HS:Y
[2025-02-20 20:09] LABS: Erythrocyte Sedimentation Rate 4 mm/hr (0-20)
[2025-02-20 21:00] VITALS: BP 112/71; PULSE 85; RESP 19; TEMP 98.1; O2SAT 95
[2025-02-21] VITALS (7 sets, daily range): BP systolic 108–122; BP diastolic 65–85; PULSE 60–75; RESP 16–18; TEMP 97.9–98.3; O2SAT 94–96
[2025-02-21 08:17] LABS: Basophils # (auto) 0 10 ^3/uL (0-0.2); Basophils % (auto) 0.9 % (0.0-2.0); Eosinophils # (auto) 0.2 10 ^3/uL (0-0.8); Hemoglobin 14.3 g/dL (13.5-17.5); Lymphocytes % (auto) 23.4 % (10.0-50.0); Mean Corpuscular Hemoglobin 27.7 pg (28.0-32.0); Mean Corpuscular Hgb Conc. 33.3 g/dL (32.0-36.0); Mean Corpuscular Volume 83.2 fL (80.0-100.0); Monocytes # (auto) 0.5 10 ^3/uL (0-1.3); Monocytes % (auto) 11.1 % (0.0-12.0); Neutrophils # (auto) 2.6 10 ^3/uL (1.6-8.6); Neutrophils % (auto) 59.6 % (37.0-80.0); Platelet Count (auto) 112 10^3/uL (140-450); Red Blood Cells 5.16 10^6/uL (4.5-5.90); Red Cell Distribution Width 19.3 % (11.8-14.3); White Blood Cell 4.3 10^3/uL (4.4-10.8)
[2025-02-21 08:54] LABS: Erythrocyte Sedimentation Rate 2 mm/hr (0-20)
--- NOTE | 2025-02-21 16:27 | DVHPN2 ---
Subjective Feels better Reviewed: Care Plan, H&P, Labs, Medications, Previous Orders, Radiology Changes from previous H/P or p: No Changes Objective Vitals Vital Signs Date Time Temp Pulse Resp B/P (MAP) Pulse Ox O2 Delivery O2 Flow Rate FiO2 02/21/25 12:35 97.9 68 16 108/70 (83) 96 97.9 02/21/25 08:00 Room Air* 0 21 Intake/Output Intake and Output 02/21/25 07:00 Intake Total 3060.0 ml Balance 3060.0 ml Intake Oral 1220 ml IV Total 1840.0 ml # Voids 4 # Bowel Movements 2 General Appearance: Alert, Oriented X3, Cooperative, No acute distress HEENT: Atraumatic Lungs: Clear to auscultation Cardiovascular: Regular rate Extremities: Other (Right lower extremity is better. Still warmth and mild tenderness in the left lower extremity) Medications Current Medications Medications Dose Ordered Sig/Lawson Route Start Time Stop Time Status Last Admin Dose Admin Acetaminophen/ Hydrocodone Bitart 1 tab Q4HP PRN PO 02/19/25 05:15 Ondansetron HCl 4 mg Q4HP PRN IV 02/19/25 05:15 Docusate Sodium 100 mg BIDPRN PRN PO 02/19/25 05:15 Acetaminophen 650 mg Q6HP PRN PO 02/19/25 05:15 02/20/25 16:31 650 MG Nitroglycerin 0.4 mg Q5MINP PRN SL 02/19/25 06:30 Morphine Sulfate 2 mg Q30M PRN IV 02/19/25 06:30 Ampicillin Sodium/ Sulbactam Sodium 3 gm/Sodium Chloride 100 ml @ 100 mls/hr Q6H IV 02/20/25 15:00 02/21/25 15:00 100 MLS/HR Sodium Chloride 1,000 ml @ 75 mls/hr [id number] IV 02/20/25 16:00 02/21/25 05:46 75 MLS/HR Laboratory Results Laboratory Tests 02/20/25 07:00 02/21/25 07:53 Urinalysis Test 02/19/25 06:30 Urine Color Light-orange (Yellow) Urine Clarity Clear (Clear) Urine pH 5.5 (5.0-9.0) Urine Specific [place] 1.030 (1.001-1.035) Urine Protein 1+ (Negative) H Urine Ketones Trace (Negative) Urine Blood Negative /uL (Negative) Urine Nitrite Negative (Negative) Urine Bilirubin Negative (Negative) Urine Urobilinogen 3 mg/dL (Negative) H Urine Leukocyte Esterase Negative /uL (Negative) Urine RBC 2 /hpf (0 - 3) Urine Microscopic WBC 4 /HPF (0-3) H Urine Squamous Epithelial Cells Few /hpf (<5) Urine Bacteria None seen /hpf (None Seen) Urine Hyaline Casts Few /lpf (0 - 2) Urine Mucus Few (None Seen) Urine Glucose Trace mg/dL (Normal) Assessment/Plan Assessment/Plan Bilateral lower extremities wounds from dog bites/ left more than right Leukopenia Thrombocytopenia Homelessness Probably Gilbert's syndrome Plan: Continue IV antibiotic. No foreign bodies by the x-ray. Possible home tomorrow if stable Plan discussed with: Patient Date of Service: Feb 21, 2025 Billing Provider: TREVON NORMAN MD Common Visit Codes: [id number] INP/OBS CARE(MOD) TREVON NORMAN MD Feb 21, 2025 16:27
[2025-02-22] VITALS (8 sets, daily range): BP systolic 104–115; BP diastolic 64–73; PULSE 64–78; RESP 16–18; TEMP 97.9–98.3; O2SAT 94–97
--- NOTE | 2025-02-22 17:01 | DVHDS2 ---
Discharge Summary Date of Admission Feb 19, 2025 at 06:21 Date of Discharge: Feb 22, 2025 Admitting Diagnosis Dog bite with cellulitis Labs/Diagnostic Data: Laboratory Results Test 02/21/25 07:53 02/20/25 07:00 02/19/25 06:30 White Blood Count 4.3 10^3/uL (4.4-10.8) Red Blood Count 5.16 10^6/uL (4.5-5.90) Hemoglobin 14.3 g/dL (13.5-17.5) Hematocrit 43.0 % (41.0-53.0) Mean Corpuscular Volume 83.2 fL (80.0-100.0) Mean Corpuscular Hemoglobin 27.7 pg (28.0-32.0) Mean Corpuscular Hemoglobin Concent 33.3 g/dL (32.0-36.0) Red Cell Distribution Width 19.3 % (11.8-14.3) Platelet Count 112 10^3/uL (140-450) Mean Platelet Volume 7.4 fL (6.9-10.8) Neutrophils (%) (Auto) 59.6 % (37.0-80.0) Lymphocytes (%) (Auto) 23.4 % (10.0-50.0) Monocytes (%) (Auto) 11.1 % (0.0-12.0) Eosinophils (%) (Auto) 5.0 % (0.0-7.0) Basophils (%) (Auto) 0.9 % (0.0-2.0) Neutrophils # (Auto) 2.6 10 ^3/uL (1.6-8.6) Lymphocytes # (Auto) 1.0 10 ^3/uL (0.4-5.4) Monocytes # (Auto) 0.5 10 ^3/uL (0-1.3) Eosinophils # (Auto) 0.2 10 ^3/uL (0-0.8) Basophils # (Auto) 0 10 ^3/uL (0-0.2) Nucleated Red Blood Cells 0.0 % Erythrocyte Sedimentation Rate 2 mm/hr (0-20) Sodium Level 137 mmol/L (136-145) Potassium Level 3.8 mmol/L (3.5-5.1) Chloride Level 104 mmol/L (98-107) Carbon Dioxide Level 23 mmol/L (20-31) Anion Gap 10 (5-15) Blood Urea Nitrogen < 5 mg/dL (9-23) Creatinine 0.58 mg/dL (0.700-1.30) Glomerular Filtration Rate Calc 124 mL/min (>90) BUN/Creatinine Ratio 8.6 (10.0-20.0) Serum Glucose 99 mg/dL (74-106) Calcium Level 9.2 mg/dL (8.7-10.4) Magnesium Level 1.7 mg/dL (1.6-2.6) Total Bilirubin 2.6 mg/dL (0.2-1.0) Aspartate Amino Transferase (AST) 32 U/L (13-40) Alanine Aminotransferase (ALT) 28 U/L (7-40) Alkaline Phosphatase 99 U/L (46-116) Total Protein 7.1 g/dL (5.7-8.2) Albumin 4.0 g/dL (3.2-4.8) Urine Color Light-orange (Yellow) Urine Clarity Clear (Clear) Urine pH 5.5 (5.0-9.0) Urine Specific [place] 1.030 (1.001-1.035) Urine Protein 1+ (Negative) Urine Ketones Trace (Negative) Urine Blood Negative /uL (Negative) Urine Nitrite Negative (Negative) Urine Bilirubin Negative (Negative) Urine Urobilinogen 3 mg/dL (Negative) Urine Leukocyte Esterase Negative /uL (Negative) Urine RBC 2 /hpf (0 - 3) Urine Microscopic WBC 4 /HPF (0-3) Urine Squamous Epithelial Cells Few /hpf (<5) Urine Bacteria None seen /hpf (None Seen) Urine Hyaline Casts Few /lpf (0 - 2) Urine Mucus Few (None Seen) Urine Glucose Trace mg/dL (Normal) Other Laboratory Tests 02/21/25 07:53 02/20/25 07:00 Brief Hx & Hospital Course: History of Present Illness The patient is a 44-year-old male homeless who denies past medical history presented to [facility] ED for evaluation of left lower extremity dog bite 2 days ago. Patient reports increasing pain, redness, swelling, getting worse today that prompted this visit. Patient was seen and evaluated in the ED, laboratory data shows WBC 5.8, platelets 146, sodium 139, potassium 3.6, BUN < 5, creatinine 0.52, GFR 128, glucose 83, total bilirubin 1.3, AST 46, ALT 33. Patient was started on IV antibiotic regimen Unasyn, please see medication orders section in the computer. On my assessment, patient denies chest pain, no headache, no dizziness, no diaphoresis, no shortness of breath, no nausea, no vomiting, no fever, no chills. Patient was admitted for further evaluation and medical management. Course of hospitalization: Patient was started on antibiotic therapy with ampicillin and clindamycin. Patient's redness has resolved his lower extremities. Puncture sites are without any drainage. Patient has no leukocytosis and is afebrile. Patient is agreeable to be discharged home he will be continued on antibiotic therapy with Augmentin 500 mg p.o. b.i.d. for additional five days. He will follow up with the discharge Clinic in one week. All questions Answered. Physical examination General: Alert and Oriented x3. No acute distress. Well-nourished. Eyes: EOMI. Anicteric. HENT: Moist mucous membranes. Lungs: Clear to auscultation bilaterally. No accessory muscle use. Cardiovascular: Regular rate and rhythm. No murmur. No JVD. Abdomen: Soft, non-tender and non-distended. No palpable masses. Extremities: No edema. Non-tender. Skin: No rashes or lesions. Warm. Neurologic: No focal neurological deficits. CN II-XII grossly intact, but not individually tested. Psychiatric: Cooperative. Appropriate mood and affect. Total time spent with patient discussing and formulating plan of care: 35 minutes. This medical document was created using an electronic medical record system with [employer] dictation system. Although this document has been carefully reviewed, there may still be some phonetic and typographical errors. These areas are purely typographical due to imperfections of the software programs, and do not reflect any compromise in the patient's medical care. Condition at Discharge: Fair Final Diagnosis/Problems List Dog bites to BLE Secondary diagnosis: Leukopenia Thrombocytopenia Homelessness Probably Gilbert's syndrome Discharge Disposition: Home Discharge Instruct/Medications Diet: Regular Activity: No Restrictions, As Tolerated Follow Up/Referral: [place] clinic in 1 week Medications: Augmentin 500 po bid x 5 days 36 Discharge Statement: "Patient was advised to return to the ER or call 911 if any headaches, dizziness, shortness of breath, chest pain, abdominal pain, bleeding, fevers, or worsening of medical condition. Patient was counseled about treatment plan, medications, possible side effects, patientverbalized understanding. All questions were answered to the best of my ability. This discharge took greater then 30 minutes in planning, reviewing documentation, counseling the patient, and discussing with other team members." ASSESSMENT ASSESSMENT Assessment Dog bites to BLE Date of Service: Feb 22, 2025 Billing Provider: NITHYA DE LEON NP Common Visit Codes: [id number] DISCH DAY >30min NITHYA DE LEON NP Feb 22, 2025 17:01
[2025-02-22] MEDS: HYDROcodone-ACET 5/325MG TAB PO PRN (21:26)
[2025-02-23 01:02] VITALS: BP 108/64; PULSE 61; RESP 20; TEMP 98.5; O2SAT 95
[2025-02-23 05:00] VITALS: BP 99/60; PULSE 68; RESP 18; TEMP 98.2; O2SAT 97
[2025-02-23 08:00] VITALS: PULSE 88; RESP 17; O2SAT 96
[2025-02-23 09:00] VITALS: BP 123/80; PULSE 83; RESP 18; TEMP 98.1; O2SAT 95
[2025-02-23 13:00] VITALS: BP 113/56; PULSE 91; RESP 16; TEMP 98.1; O2SAT 98
[2025-02-23 17:00] VITALS: BP 118/61; PULSE 67; RESP 18; TEMP 98.4; O2SAT 98
== END 2025-02-23 09:06 | disposition home or self-care (01) | DRG 351 ==
LOC: ER 21:23 → EDBD 21:23 → OVERFLOW 02-19 06:21 → WEST WING 02-19 09:15
PROVIDERS: ADMIT Nurse Practitioner Acute Care; ATTEND Nurse Practitioner Acute Care
DX: S81.852A Open bite, left lower leg, initial encounter (principal); D69.6 Thrombocytopenia, unspecified; W54.0XXA Bitten by dog, initial encounter; S81.851A Open bite, right lower leg, initial encounter; E80.4 Gilbert syndrome; D72.819 Decreased white blood cell count, unspecified; Z59.00 Homelessness unspecified; Z79.2 Long term (current) use of antibiotics; Z79.899 Other long term (current) drug therapy; Y93.89 Activity, other specified; Y92.89 Other specified places as the place of occurrence of the external cause; Y99.8 Other external cause status
CPT/HCPCS: 36415; 73590; 80053; 81001; 83735; 85025; 85652; G0378; J3490